=== PATIENT | female | born 1940 | race Caucasian/White ===

== ENCOUNTER → 2023-11-28 10:28 | Outpatient (BNVA) | payer MEDICARE, SELFPAY | PROVIDERS: PCP Family Medicine; Referring Provider Family Medicine; Visit Provider Internal Medicine | DX: J44.9 Chronic obstructive pulmonary disease, unspecified; J18.9 Pneumonia, unspecified organism; L08.9 Local infection of the skin and subcutaneous tissue, unspecified; Z76.89 Persons encountering health services in other specified circumstances | CPT/HCPCS: 36415; 99205; 71046; 73140; 85025; 87070; 87205 ==

== ENCOUNTER 2023-11-28 14:14 | Outpatient (CLI) | payer MEDICARE, SELFPAY ==
--- NOTE | 2023-11-28 11:30 | DI.RAD_ITS ---
Exam(s) XR CHEST 2V PA LATERAL EXAM: XR CHEST 2V PA LATERAL CLINICAL HISTORY: J18.9 Follow up bilateral pneumonia w/ effusions,sweats J40 BRONCHITIS. TECHNIQUE: 2D digital imaging was performed. COMPARISON: CR XR CHEST 1 VW from 08/08/[address] CTA CHEST W AND/OR WO CONTRAST from 10/29/2023 FINDINGS: 2 views: Heart size is normal. Prominent ascending thoracic aorta, shown to be aneurysmal on prior outside CT scan 10/29/2023. There is infiltrate evident in mid right lung. Difficult to determine if this is right middle lobe a re right lower lobe, possibly both, given the appearance of the right lung infiltrates evident on CT scan of 10/29/2023. Mild blunting of both costophrenic angles noted consistent with small bilateral pleural effusions. There is no evidence of pulmonary edema. Compression fracture T1 noted, previous ly present on the prior CT scan listed above. IMPRESSION: Right midlung infiltrate. Either right middle lobe or right lower lobe. Both exhibited infiltrate o n outside CT scan of 10/29/2023.Small bilateral pleural effusions Enlarged thoracic aorta If clinically indicated follow-up CT scan can be performed for comparison to CT scan of 10/29/2023 an d to determine if there is any suspicion for neoplasm. DATA REPOSITORY: RADIATION DOSE DELIVERED:
--- NOTE | 2023-11-28 11:45 | DI.RAD_ITS ---
Exam(s) XR FINGER LT RING EXAM: XR FINGER LT RING CLINICAL HISTORY: r/o osteomyelitis L08.9 INFECTION. TECHNIQUE: 2D digital imaging was performed. Three views. COMPARISON: None. FINDINGS: BONES: No acute fracture is present. No bony destructive lesion is seen. JOINTS: No dislocation present. Advanced degenerative changes of the distal interphalangeal joints o f the fingers as well as 1st carpal metacarpal joint. SOFT TISSUE: Mild soft tissue swelling around distal phalanx. No foreign body. No abnormal soft tis boyd gas. IMPRESSION: No evidence of osteomyelitis. DATA REPOSITORY: RADIATION DOSE DELIVERED:
[2023-11-28 14:37] LABS: Abs Immature Grans 0.03 10^3/uL (0.0-0.06); Absolute Basophil Count 0.04 10^3/uL (0.0-0.2); Absolute Eosinophil Count 0.37 10^3/uL (0.0-0.7); Absolute Neutrophil Count 5.57 10^3/uL (1.2-6.7); Basophils % 0.5 %; Eosinophils % 4.6 %; HCT 39.5 % (36.0-46.0); HGB 12.6 g/dL (11.2-15.7); Immature Grans % 0.4 %; Lymphocytes % 17.5 %; MCH 30.9 pg (27.0-33.0); MCHC 31.9 % (32.0-36.0); MCV 97 fL (80-95); MPV 9.6 fL (8.0-11.0); Monocytes % 7.5 %; Neutrophils % 69.5 %; Platelet Count 354 10^3/uL (130-400); RBC 4.08 10^6/uL (3.93-5.22); RDW 15.3 % (11.7-14.6); RDW-SD 54.9 fL; WBC 8.01 10^3/uL (4.4-10.8)
== END 2023-11-28 14:34 ==
LOC: DI 14:18
PROVIDERS: PCP Family Medicine; Visit Provider Internal Medicine
DX: J41.1 Mucopurulent chronic bronchitis; Z76.89 Persons encountering health services in other specified circumstances; L08.89 Other specified local infections of the skin and subcutaneous tissue
CPT/HCPCS: 71046; 73140; 85025; 87070; 87205

== ENCOUNTER → 2024-01-02 13:37 | Outpatient (BNVA) | payer MEDICARE, SELFPAY | PROVIDERS: PCP Family Medicine; Referring Provider Family Medicine; Visit Provider Physician Assistant Surgical | DX: J44.9 Chronic obstructive pulmonary disease, unspecified (principal); I77.810 Thoracic aortic ectasia; J96.11 Chronic respiratory failure with hypoxia; R91.8 Other nonspecific abnormal finding of lung field; R53.83 Other fatigue | CPT/HCPCS: 94618; 99214 ==

== ENCOUNTER → 2024-04-03 12:46 | Outpatient (BNVA) | payer MEDICARE, SELFPAY | PROVIDERS: PCP Family Medicine; Referring Provider Family Medicine; Visit Provider Physician Assistant Surgical | DX: J44.9 Chronic obstructive pulmonary disease, unspecified (principal); I77.810 Thoracic aortic ectasia; J96.11 Chronic respiratory failure with hypoxia; R91.8 Other nonspecific abnormal finding of lung field | CPT/HCPCS: 99214 ==